=== PATIENT | male | born 1975 | race Caucasian/White ===

== ENCOUNTER 2016-06-14 16:19 | Emergency (ER) | payer OTHER ==
[2016-06-14 16:23] VITALS: BP 119/77; PULSE 70; RESP 15; TEMP 98.1; O2SAT 95
--- NOTE | 2016-06-14 16:39 | UCPHY ---
H & P Time Seen by Provider: 06/14/16 16:31 Patient Type: New HPI/ROS: CHIEF COMPLAINT: Finger laceration HISTORY OF PRESENT ILLNESS: 40-year-old male presents with a finger laceration. He accidentally cut his finger on a piece of metal tubing at home just prior to arrival. Immediate onset of moderate pain and mild bleeding. Both have subsided. No numbness or weakness. Tetanus is up-to-date. ROS: No numbness, weakness, excessive bleeding, syncopal episode, other injury. Past Medical/Surgical History: Denies Smoking Status: Never smoked Physical Exam: Alert and oriented x3, no acute distress. Extremities: right 4th digit-2 cm flap-like laceration on the dorsal aspect of the proximal phalanx Neuro: Motor intact to active resistance and sensory intact to light touch Vascular: Capillary refill brisk distally. Constitutional: Initial Vital Signs Temperature (C) 36.7 C 06/14/16 16:21 Heart Rate 70 06/14/16 16:21 Respiratory Rate 15 06/14/16 16:21 Blood Pressure 119/77 06/14/16 16:21 O2 Sat (%) 95 06/14/16 16:21 O2 Delivery Mode Room Air Allergies/Adverse Reactions: No Known Allergies Allergy (Unverified 06/14/16 16:20) Home Medications: Medication Instructions Recorded NK [No Known Home Meds] 06/14/16 Medical Decision Making Procedures: Procedure: Laceration repair. The 2 cm laceration on the digit was anesthetized using lidocaine. The wound was irrigated, draped and explored to its base with a gloved finger. There were no deep structures involved. No foreign body palpable. The wound was repaired with 5 O Ethilon. The wound repair was simple. Departure - Departure Disposition: Home, Routine, Self-Care Clinical Impression: Finger laceration Qualifiers: Encounter type: initial encounter Qualified Code(s): S61.219A - Laceration without foreign body of unspecified finger without damage to nail, initial encounter Condition: Good Instructions: Finger Laceration (ED) Additional Instructions: Return for suture removal in 10 days. Referrals: Juan Carlos Simpson MD [Medical Doctor] - As per Instructions Stand Alone Forms: Work Excuse - PQRS PQRS Measurement: N/A
== END 2016-06-14 17:15 | disposition home or self-care (01) ==
LOC: CED 16:19
PROC: 0HQFXZZ Repair Right Hand Skin, External Approach (ICD-10-PCS; principal; 2016-06-14)
DX: S61.214A Laceration without foreign body of right ring finger without damage to nail, initial encounter (principal); W26.8XXA Contact with other sharp object(s), not elsewhere classified, initial encounter
CPT/HCPCS: 12001-PO; 99203-PO; G0463-PO